=== PATIENT | male | born 1950 | race Hispanic/Latino ===

== ENCOUNTER 2022-07-26 10:59 | Outpatient (CLI) | payer MEDICARE, BC | END 2022-07-26 11:00 | disposition home or self-care (01) | LOC: CSHRAD 10:59 | PROVIDERS: ATTEND Internal Medicine | DX: J18.9 Pneumonia, unspecified organism (principal) | CPT/HCPCS: 71046 ==

== ENCOUNTER 2023-05-15 12:10 | Outpatient (CLI) | payer MEDICARE, BC | END 2023-05-15 12:11 | disposition home or self-care (01) | LOC: CSHRAD 12:10 | PROVIDERS: ATTEND Internal Medicine | DX: J40 Bronchitis, not specified as acute or chronic (principal) | CPT/HCPCS: 71046 ==